=== PATIENT | female | born 1940 | race Caucasian/White ===

== ENCOUNTER 2017-01-05 01:31 | Emergency (ER) | payer MEDICARE, OTHER ==
[2017-01-05] MEDS ORDERED: ASPIRIN 81 MG TABLET, CHEWABLE PO ONE (02:30)
--- NOTE | 2017-01-05 02:51 | ER Document Report ---
ED Cardiac - General Chief Complaint: Chest Pain > 30 Stated Complaint: CHEST PAIN Time Seen by Provider: 01/05/17 02:35 Notes: Patient is a 76-year-old female comes months ago for chief complaint of sensation of her heart beating rapidly while she was trying to go to sleep tonight. He states this lasted for about 20 minutes before resolving. She denies any chest pain with it, denies passing out, she states she felt slightly lightheaded. She states she is on metoprolol 25 mg daily, has been seen by cardiology in the past for this, states this has happened 5 times over the past 15 years. She also takes lisinopril and eyedrops, denies any other medical history. She is here with her . TRAVEL OUTSIDE OF THE [place] IN LAST 30 DAYS: No - Related Data Allergies/Adverse Reactions: propoxyphene HCl [From [facility]] Adverse Reaction (Verified 01/05/17 04:03) n/v Past Medical History - General Information source: Patient - Social History Smoking Status: Never Smoker Frequency of alcohol use: None Drug Abuse: None Lives with: Family Family History: Reviewed & Not Pertinent - Past Medical History Cardiac Medical History: Reports: Hx Hypertension - medicated Denies: Hx Coronary Artery Disease, Hx Heart Attack Pulmonary Medical History: Denies: Hx Asthma, Hx Bronchitis, Hx COPD, Hx Pneumonia Neurological Medical History: Denies: Hx Cerebrovascular Accident, Hx Seizures GI Medical History: Denies: Hx Hepatitis, Hx Hiatal Hernia, Hx Ulcer Musculoskeltal Medical History: Denies Hx Arthritis Infectious Medical History: Denies: Hx Hepatitis Past Surgical History: Reports: Hx Cardiac Catheterization - 10 years ago, Hx Hysterectomy. Denies: Hx Mastectomy, Hx Open Heart Surgery, Hx Pacemaker - Immunizations Immunizations up to date: No Hx Diphtheria, Pertussis, Tetanus Vaccination: No Review of Systems - Review of Systems Constitutional: No symptoms reported EENT: No symptoms reported Cardiovascular: See HPI Respiratory: No symptoms reported Gastrointestinal: No symptoms reported Genitourinary: No symptoms reported Female Genitourinary: No symptoms reported Musculoskeletal: No symptoms reported Skin: No symptoms reported Hematologic/Lymphatic: No symptoms reported Neurological/Psychological: No symptoms reported Physical Exam - Vital signs Vitals: Resp BP Pulse Ox 16 161/81 H 97 01/05/17 03:00 01/05/17 03:00 01/05/17 03:00 Interpretation: Normal - General General appearance: Appears well, Alert In distress: None - HEENT Head: Normocephalic, Atraumatic Eyes: Normal Pupils: PERRL - Respiratory Respiratory status: No respiratory distress Chest status: Nontender Breath sounds: Normal. No: Decreased air movement, Wheezing Chest palpation: Normal - Cardiovascular Rhythm: Regular. No: Irregularly irregular, Tachycardia Heart sounds: Normal auscultation, S1 appreciated, S2 appreciated Murmur: No - Abdominal Inspection: Normal Distension: No distension Bowel sounds: Normal Tenderness: Nontender Organomegaly: No organomegaly - Back Back: Normal, Nontender. No: Tender - Extremities General upper extremity: Normal inspection, Nontender, Normal color, Normal ROM , Normal temperature General lower extremity: Normal inspection, Nontender, Normal color, Normal ROM , Normal temperature, Normal weight bearing. 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 No acute findings. CBC, chemistry, cardiac enzymes generally unremarkable other than mild hyponatremia. Patient was given a bolus of IV fluids (500cc). Patient has been asymptomatic, monitored during her stay and only had a few PVCs but no other abnormalities. Patient is on metoprolol, or he has cardiac fall, is requesting to leave. She declines any further workup but does agree to follow-up with her curator herbarium. She has had this same symptom only 5 times in 15 years, patient did not have any chest pain, syncope, or other indications of life-threatening arrhythmia. Recommended close follow-up colonoscopy precautions, patient and state understanding and agreement. - Vital Signs Vital signs: Temp Pulse Resp BP Pulse Ox 97.8 F 16 150/84 H 93 01/05/17 05:30 01/05/17 05:28 01/05/17 05:28 01/05/17 05:28 - Laboratory Result Diagrams: 01/05/17 03:10 01/05/17 03:10 Laboratory results interpreted by me: 01/05/17 01/05/17 03:10 03:10 RDW 14.6 H Eosinophils % 9.2 H Sodium 135.8 L Alkaline Phosphatase 130 H Creatine Kinase 169 H Discharge - Discharge Clinical Impression: Rapid heart rate Condition: Stable Disposition: HOME, SELF-CARE Additional Instructions: Your workup does not show any concerning abnormalities. You have been hydrated and treated for slightly low sodium level. I recommend reducing your daily caffeine intake. Stay hydrated. Continue your metoprolol, please follow closely with Dr. Jalloh for potential adjustment and treatment. Please return to emergency department for any concerning, returned, or worsening symptoms. Referrals: KIMANI SCHMIDT MD [Primary Care Provider] - Follow up as needed
[2017-01-05 03:25] LABS: ABSOLUTE BASOPHILS # (AUTO) 0.1 10^3/uL (0.0-0.2); ABSOLUTE EOSINOPHILS # (AUTO) 0.5 10^3/uL (0.0-0.6); ABSOLUTE LYMPHOCYTES (AUTO) 1.1 10^3/uL (0.5-4.7); ABSOLUTE MONOCYTES (AUTO) 0.7 10^3/uL (0.1-1.4); ABSOLUTE NEUT (AUTO) 2.9 10^3/uL (1.7-8.2); EOSINOPHILS % (AUTO) 9.2 % (0-6); HEMATOCRIT 40.8 % (36.0-47.0); HEMOGLOBIN 13.9 g/dL (12.0-15.5); HGB HCT DIFFERENCE 0.9; LYMPHOCYTES % (AUTO) 21.2 % (13-45); MEAN CORPUSCULAR HEMOGLOBIN 31.1 pg (27.0-33.4); MEAN CORPUSCULAR VOLUME 92 fl (80-97); MONOCYTES % (AUTO) 12.9 % (3-13); RED BLOOD COUNT 4.46 10^6/uL (3.72-5.28); RED CELL DISTRIBUTION WIDTH 14.6 % (11.5-14.0); SEGMENTED NEUTROPHILS % (AUTO) 55.7 % (42-78); WHITE BLOOD COUNT 5.2 10^3/uL (4.0-10.5)
[2017-01-05 03:50] LABS: CREATINE KINASE MB 2.29 ng/mL (<4.55)
[2017-01-05 03:51] LABS: TROPONIN I < 0.012 ng/mL
[2017-01-05 04:45] LABS: ALANINE AMINOTRANSFERASE 27 U/L (9-52); ALBUMIN 4.1 g/dL (3.5-5.0); ALKALINE PHOSPHATASE 130 U/L (38-126); ANION GAP 12 (5-19); ASPARTATE AMINO TRANSFERASE 36 U/L (14-36); BILIRUBIN,DIRECT 0.3 mg/dL (0.0-0.4); BILIRUBIN,TOTAL 0.8 mg/dL (0.2-1.3); BLOOD UREA NITROGEN 15 mg/dL (7-20); CALCIUM 9.8 mg/dL (8.4-10.2); CARBON DIOXIDE 25 mmol/L (22-30); CHLORIDE 99 mmol/L (98-107); CREATINE KINASE 169 U/L (30-135); CREATININE RESULT 0.71 mg/dL (0.52-1.25); GLUCOSE 101 mg/dL (75-110); MAGNESIUM 1.8 mg/dL (1.6-2.3); SODIUM 135.8 mmol/L (137-145); TOTAL PROTEIN 7.1 g/dL (6.3-8.2)
[2017-01-05] MEDS ORDERED: NORMAL SALINE 1000 ML 500 ML IV ONE (05:12)
[2017-01-05 05:39] VITALS: BP 150/84
--- NOTE | 2017-01-05 13:02 | EKG REPORT ---
SEVERITY:- ABNORMAL ECG - SINUS RHYTHM ABNRM R PROG, CONSIDER ASMI OR LEAD PLACEMENT : Confirmed by: Jon Bethea 05-Jan-2017 13:01:36
== END 2017-01-05 05:40 | disposition home or self-care (01) ==
LOC: ER 01:31
DX: R00.2 Palpitations (principal); R07.9 Chest pain, unspecified
CPT/HCPCS: 93005; 99285; 36415; 82553; 82550; 83735; 84443; 85025; 80053; 84484; 71010; 93010; J7030

== ENCOUNTER → 2017-04-05 | Outpatient (CLI) | payer MEDICARE, OTHER ==
--- NOTE | 2017-04-05 10:42 | WOMENS IMAGING REPORT ---
EXAM DESCRIPTION: BONE DENSITY HIP/SPINE COMPLETED DATE/TIME: 04/05/2017 10:11 am REASON FOR STUDY: AGE RELATED OSTEOPOROSIS M81.0 AGE-RELATED OSTEOPOROSIS W/O CURRENT PATHOLOGICAL FRAC COMPARISON: 02/19/2012 09/15/2004 TECHNIQUE: Dual-Energy X-ray Absorptiometry (DEXA) of the AP Spine and Hip. LIMITATIONS: None. FINDINGS: LUMBAR SPINE: The bone mineral density (BMD) measured from L1-L4 in the AP projection correlates with a T-score of -1.6, which is osteopenia as defined by the World Health Organization. HIP: The bone mineral density (BMD) measured in the left hip correlates with a T-score of -1.6 in the femo ral neck, which is osteopenia as defined by the World Health Organization. IMPRESSION: 1. LUMBAR SPINE: Osteopenia 2. HIP: Osteopenia COMMENT: The World Health Organization defines low BMD as follows: T-score: Normal: Greater than -1.0 Osteopenia: Between -1.0 and -2.5 Osteoporosis: Less than -2.5 without fractures Established osteoporosis: Less than -2.5 with fractures In general, you may wish to consider: Diagnosis Treatment Follow-up DEXA Normal BMD Prevention 2-3 years Osteopenia Prevention/Therapy 1-2 years Osteoporosis Therapy Yearly TECHNICAL DOCUMENTATION: JOB ID: [id number] All Rights Reserved
== END ==
LOC: WI 08:52
PROVIDERS: ATTEND Family Medicine
DX: M81.0 Age-related osteoporosis without current pathological fracture (principal)
CPT/HCPCS: 77080